=== PATIENT | male | born 1960 | race Caucasian/White ===

== ENCOUNTER 2017-01-31 13:53 | Observation (INO) ==
[2017-01-31] MEDS: 0.9 % Sodium Chloride 1,000 ML IVC SCH ×4 (14:04→16:32)
--- NOTE | 2017-01-31 14:08 | Emergency Department Note ---
Disposition Clinical Impression: Hypotension, Dehydration, Renal failure Disposition: Admitted As Inpatient Condition: Good Referrals: NO,PCP [Primary Care Provider] - Forms: ED Satisfaction Letter Time of Disposition: 16:56 Syncope HPI - General Chief Complaint: ED Dizziness Stated Complaint: dizzy, lightheaded, wont stay awake Time Seen by Provider: 01/31/17 13:55 Source: patient, family (Fiance) Mode of arrival: wheelchair Limitations: no limitations Nursing Notes Reviewed: Yes Vital Signs Reviewed: Yes - History of Present Illness HPI Narrative: 56-year-old white male who presents after having a syncopal episode last night and becoming dizzy and weak this morning. The history primarily obtained from his fiance is at last night around midnight she heard him fall. She went and checked on him and he had passed out. She states she woke up rather quickly. She set up with him for a while and he seemed fine. He went to bed. He was fine this morning. About an hour prior to coming in he started feeling dizzy lightheaded and she said he seemed really sleepy. The patient has a history of hypertension. He states he was on blood pressure medicine. He states he ran out of his blood pressure medicine, and has been taking a blood pressure pill that was given to him by a friend. He has been taking this medicine for 3 days. He does not know the name of the medication. It is in his cabinet at home, and I am sending his fiancee home to get the medication. He denies chest pain. He states it does feel like it is "hard to breathe". He denies abdominal pain. He is had some loose green stool, no blood. No fever. No symptoms. Pt Subjective Complaint: loss of consciousness, felt faint Onset (ago): hour(s) (14 hours ago) Number of episodes: 1 Duration: second(s) Prodromal Symptoms: lightheaded Witnessed: yes - by bystander (Fiancee) Context: standing up Injuries Sustained Associated with Event: none Current Symptoms: weakness, other (Dizziness) History: other (Hypertension) Treatments prior to arrival: none Associated trauma secondary to event: No - Related Data Home Medications Medication Instructions Recorded Confirmed Divalproex Sodium [Depakote] 125 mg PO DAILY 10/30/16 10/30/16 Quetiapine Fumarate [Seroquel] 400 mg PO DAILY 10/30/16 10/30/16 Previous Rx's Medication Instructions Recorded Diclofenac Potassium 50 mg PO TID PRN #20 tablet 10/30/16 Allergies Allergy/AdvReac Type Severity Reaction Status Date / Time No Known Allergies Allergy Verified 01/31/17 13:56 All systems ED: reviewed and negative except as stated. Constitutional: Denies: fever, chills ENT ED: Denies: ear pain, throat pain Cardiovascular: Reports: syncope. Denies: chest pain, palpitations Respiratory: Reports: dyspnea. Denies: cough, wheezes Gastrointestinal: Reports: diarrhea (Loose green stool). Denies: abdominal pain , nausea, vomiting Genitourinary: Denies: urgency, dysuria, frequency Musculoskeletal: Denies: back pain, neck pain Neurological: Reports: weakness. Denies: headache, numbness, paresthesias Past Medical History - Past Medical History Medical history: Reports: other (Mental health) Psychiatric history: Reports: anxiety, depression - Social History Smoking Status: Never smoker Smokeless Tobacco Status: No Alcohol use: Reports: none Drug use: Reports: none Physical Exam - General Limitations: no limitations General appearance: alert, anxious, other (Thin body habitus) - Head Head exam: atraumatic, normocephalic - Eye Eye exam: Present: PERRL, EOMI. Absent: scleral icterus, conjunctival injection - ENT ENT exam: normal oropharynx, mucous membranes moist, TM's normal bilaterally - Neck Neck exam: Present: normal inspection, full ROM, trachea midline. Absent: lymphadenopathy, thyromegaly - Chest Chest inspection: Present: normal inspection, symmetric chest wall rise. Absent : tenderness - Respiratory Respiratory exam: Present: normal lung sounds bilaterally. Absent: respiratory distress, wheezes - Cardiovascular Cardiovascular exam: Present: regular rate, normal rhythm, normal heart sounds - Abdominal Exam Abdominal exam: Present: soft, Non-Tender, normal bowel sounds. Absent: organomegaly, mass - Rectal Exam Rectal exam: Present: normal rectal tone, other (Green liquid stool. No blood.) . Absent: fecal impaction, mass, tenderness - Extremities Exam Extremities exam: Present: normal inspection, full ROM. Absent: tenderness, pedal edema - Neurological Exam Neurological exam: Present: alert, oriented X3, CN II-XII intact. Absent: motor sensory deficit - Psychiatric Psychiatric exam: Present: agitated, anxious - Skin Skin exam: Present: warm, dry, intact, normal color Course - Reevaluation(s) Reevaluation #1: Patient has had 3 L of normal saline. His blood pressures currently 81/47. He has been as high as 100 systolic. His heart rate is 83. Clinically he feels much better. He is awake and alert. With his sister that she had given him 3 of her Ziac tablets. He states that he has taken one 3 days in a row. It is been a long time since he has been on blood pressure medication of his own. Time: 16:40 Reevaluation #2: Discussed with Dr. Woo. He accepts the patient for admission. He will be admitted to a telemetry bed. Time: 16:56 Vital Signs Temperature 98.4 F 01/31/17 13:58 Pulse Rate 104 01/31/17 13:58 Respiratory Rate 16 01/31/17 13:58 Blood Pressure 70/49 01/31/17 13:58 O2 Sat by Pulse Oximetry 94 01/31/17 13:58 Temperature 98.4 F 01/31/17 14:11 Pulse Rate 84 01/31/17 16:17 Respiratory Rate 12 01/31/17 16:17 Blood Pressure 72/38 01/31/17 16:17 O2 Sat by Pulse Oximetry 97 01/31/17 16:17 Oxygen Delivery Oxygen Delivery Room Air Syncope - MDM Narrative Medical decision making narrative: Differential includes but is not limited to medication reaction, medication overdose, anemia, dehydration, myocardial infarction, pulmonary embolus, hypoglycemia, hyperglycemia. The patient has developed some renal sufficiency and dehydration. His BUN/ creatinine are significantly higher than his previous lab values on record. His symptoms coincide with the onset of taking his sister's blood pressure medicine for the last 3 days. Even with his blood pressure up around 80 or 90 he is significantly better. He says he feels much better. He will need to be admitted, monitored, continued hydration. I spoke with Dr. Woo in regards to his admission. He is agreeable with admitting him here. - Medical Records Medical records reviewed: Yes I reviewed the patient's medical records. Previous laboratory values show that his BUN/creatinine of been normal in the past. His BUN is 27 with a creatinine of 2.37. - Lab Data Lab results reviewed: Yes I reviewed the patient's lab results. Result diagrams: 01/31/17 14:25 01/31/17 14:25 Lab Results 01/31/17 01/31/17 01/31/17 Range/Units 14:11 14:16 14:18 WBC (4.3-11.1) K/mcL RBC (4.19-5.50) M/mcL Hgb (12.9-16.9) g/dL Hct (37.5-50.1) % MCV (83.0-100.0) fL MCH (28.0-33.3) pg MCHC (31.6-35.5) g/dL RDW (11.5-14.5) % Plt Count (140-400) K/mcL MPV (9.4-12.4) fL Immature Gran % (0-4) % Seg Neutrophils % % Lymphocytes % % Monocytes % % Eosinophils % % Basophils % % Neutrophils # (1.6-8.9) K/mcL Lymphocytes # (0.6-4.6) K/mcL Monocytes # (0.0-1.3) K/mcL Eosinophils # (0.0-0.6) K/mcL Basophils # (0.0-0.2) K/mcL PT (9.4-12.1) Seconds INR D-Dimer (0-500) ng/mLFEU VBG Lactic Acid (0.5-2.2) mmol/L Sodium (136-145) mEq/L Potassium (3.5-4.5) mEq/L Chloride (98-109) mEq/L Carbon Dioxide (19-29) mEq/L BUN (8-26) mg/dL Creatinine (0.72-1.25) mg/dL Est GFR ( Amer) (> 60) Est GFR (Non-Af Amer) (> 60) BUN/Creatinine Ratio (6-26) Glucose (70-99) mg/dL Calculated Osmolality (280-300) Calcium (8.6-10.8) mg/dL Total Bilirubin (0.2-1.2) mg/dL AST (5-34) Units/L ALT (0-55) Units/L Alkaline Phosphatase (38-126) Units/L Troponin I (0-0.03) ng/mL B-Natriuretic Peptide (0-100) pg/mL Serum Total Protein (6.0-8.3) g/dL Albumin (3.5-5.0) g/dL Globulin (2.4-3.5) g/dL Albumin/Globulin Ratio (1.1-2.2) Urine Color Yellow (Yellow) Urine Clarity Clear (Clear) Urine pH 5.5 (5.0-8.0) pH Units Ur Specific Booker 1.025 (1.010-1.025) Urine Protein Trace (Neg-Trace) mg/dL Urine Glucose (UA) Normal (Normal) mg/dL Urine Ketones Negative (Negative) mg/dL Urine Blood Negative (Negative) Urine Nitrite Negative (Negative) Urine Bilirubin Negative (Negative) Urine Urobilinogen Normal (Normal) mg/dL Ur Leukocyte Esterase Negative (Negative) Ur Culture Indicated? NO (NO) Stool Occult Blood Positive A (Negative) Urine Opiates Screen Negative (Ekjmfk=703) ng/mL Ur Oxycodone Screen Negative (Cutoff= 100) ng/mL Ur Barbiturates Screen Negative (Nscaqv=776) ng/mL Ur Phencyclidine Scrn Negative (Cutoff=25) ng/mL Ur Amphetamines Screen Positive H (Igqbgy=9849) ng/mL U Benzodiazepines Scrn Negative (Rzthua=440) ng/mL Urine Cocaine Screen Negative (Cutoff= 300) ng/mL U Marijuana (THC) Screen Negative (Cutoff = 50) ng/mL 01/31/17 01/31/17 01/31/17 Range/Units 14:25 14:25 14:25 WBC 7.1 (4.3-11.1) K/mcL RBC 4.15 L (4.19-5.50) M/mcL Hgb 12.3 L (12.9-16.9) g/dL Hct 36.6 L (37.5-50.1) % MCV 88.2 (83.0-100.0) fL MCH 29.6 (28.0-33.3) pg MCHC 33.6 (31.6-35.5) g/dL RDW 13.2 (11.5-14.5) % Plt Count 250 (140-400) K/mcL MPV 8.9 L (9.4-12.4) fL Immature Gran % 0.1 (0-4) % Seg Neutrophils % 63.8 % Lymphocytes % 25.6 % Monocytes % 7.4 % Eosinophils % 2.7 % Basophils % 0.4 % Neutrophils # 4.5 (1.6-8.9) K/mcL Lymphocytes # 1.8 (0.6-4.6) K/mcL Monocytes # 0.5 (0.0-1.3) K/mcL Eosinophils # 0.2 (0.0-0.6) K/mcL Basophils # 0.0 (0.0-0.2) K/mcL PT 11.2 (9.4-12.1) Seconds INR 1.0 D-Dimer (0-500) ng/mLFEU VBG Lactic Acid (0.5-2.2) mmol/L Sodium 143 (136-145) mEq/L Potassium 3.7 (3.5-4.5) mEq/L Chloride 104 (98-109) mEq/L Carbon Dioxide 29 (19-29) mEq/L BUN 27 H (8-26) mg/dL Creatinine 2.32 H (0.72-1.25) mg/dL Est GFR ( Amer) 36 L (> 60) Est GFR (Non-Af Amer) 29 L (> 60) BUN/Creatinine Ratio 12 (6-26) Glucose 97 (70-99) mg/dL Calculated Osmolality 301 H (280-300) Calcium 8.3 L (8.6-10.8) mg/dL Total Bilirubin 0.3 (0.2-1.2) mg/dL AST 15 (5-34) Units/L ALT 10 (0-55) Units/L Alkaline Phosphatase 60 (38-126) Units/L Troponin I (0-0.03) ng/mL B-Natriuretic Peptide (0-100) pg/mL Serum Total Protein 6.7 (6.0-8.3) g/dL Albumin 3.4 L (3.5-5.0) g/dL Globulin 3.3 (2.4-3.5) g/dL Albumin/Globulin Ratio 1.0 L (1.1-2.2) Urine Color (Yellow) Urine Clarity (Clear) Urine pH (5.0-8.0) pH Units Ur Specific Booker (1.010-1.025) Urine Protein (Neg-Trace) mg/dL Urine Glucose (UA) (Normal) mg/dL Urine Ketones (Negative) mg/dL Urine Blood (Negative) Urine Nitrite (Negative) Urine Bilirubin (Negative) Urine Urobilinogen (Normal) mg/dL Ur Leukocyte Esterase (Negative) Ur Culture Indicated? (NO) Stool Occult Blood (Negative) Urine Opiates Screen (Gwohzv=926) ng/mL Ur Oxycodone Screen (Cutoff= 100) ng/mL Ur Barbiturates Screen (Sydfbs=670) ng/mL Ur Phencyclidine Scrn (Cutoff=25) ng/mL Ur Amphetamines Screen (Tswlgd=7465) ng/mL U Benzodiazepines Scrn (Pnaofc=469) ng/mL Urine Cocaine Screen (Cutoff= 300) ng/mL U Marijuana (THC) Screen (Cutoff = 50) ng/mL 01/31/17 01/31/17 01/31/17 Range/Units 14:25 14:25 14:25 WBC (4.3-11.1) K/mcL RBC (4.19-5.50) M/mcL Hgb (12.9-16.9) g/dL Hct (37.5-50.1) % MCV (83.0-100.0) fL MCH (28.0-33.3) pg MCHC (31.6-35.5) g/dL RDW (11.5-14.5) % Plt Count (140-400) K/mcL MPV (9.4-12.4) fL Immature Gran % (0-4) % Seg Neutrophils % % Lymphocytes % % Monocytes % % Eosinophils % % Basophils % % Neutrophils # (1.6-8.9) K/mcL Lymphocytes # (0.6-4.6) K/mcL Monocytes # (0.0-1.3) K/mcL Eosinophils # (0.0-0.6) K/mcL Basophils # (0.0-0.2) K/mcL PT (9.4-12.1) Seconds INR D-Dimer (0-500) ng/mLFEU VBG Lactic Acid 1.7 (0.5-2.2) mmol/L Sodium (136-145) mEq/L Potassium (3.5-4.5) mEq/L Chloride (98-109) mEq/L Carbon Dioxide (19-29) mEq/L BUN (8-26) mg/dL Creatinine (0.72-1.25) mg/dL Est GFR ( Amer) (> 60) Est GFR (Non-Af Amer) (> 60) BUN/Creatinine Ratio (6-26) Glucose (70-99) mg/dL Calculated Osmolality (280-300) Calcium (8.6-10.8) mg/dL Total Bilirubin (0.2-1.2) mg/dL AST (5-34) Units/L ALT (0-55) Units/L Alkaline Phosphatase (38-126) Units/L Troponin I 0.00 (0-0.03) ng/mL B-Natriuretic Peptide 12 (0-100) pg/mL Serum Total Protein (6.0-8.3) g/dL Albumin (3.5-5.0) g/dL Globulin (2.4-3.5) g/dL Albumin/Globulin Ratio (1.1-2.2) Urine Color (Yellow) Urine Clarity (Clear) Urine pH (5.0-8.0) pH Units Ur Specific Booker (1.010-1.025) Urine Protein (Neg-Trace) mg/dL Urine Glucose (UA) (Normal) mg/dL Urine Ketones (Negative) mg/dL Urine Blood (Negative) Urine Nitrite (Negative) Urine Bilirubin (Negative) Urine Urobilinogen (Normal) mg/dL Ur Leukocyte Esterase (Negative) Ur Culture Indicated? (NO) Stool Occult Blood (Negative) Urine Opiates Screen (Ihloie=168) ng/mL Ur Oxycodone Screen (Cutoff= 100) ng/mL Ur Barbiturates Screen (Xscreu=773) ng/mL Ur Phencyclidine Scrn (Cutoff=25) ng/mL Ur Amphetamines Screen (Cgtpxv=8009) ng/mL U Benzodiazepines Scrn (Cugitj=369) ng/mL Urine Cocaine Screen (Cutoff= 300) ng/mL U Marijuana (THC) Screen (Cutoff = 50) ng/mL 01/31/17 Range/Units 14:25 WBC (4.3-11.1) K/mcL RBC (4.19-5.50) M/mcL Hgb (12.9-16.9) g/dL Hct (37.5-50.1) % MCV (83.0-100.0) fL MCH (28.0-33.3) pg MCHC (31.6-35.5) g/dL RDW (11.5-14.5) % Plt Count (140-400) K/mcL MPV (9.4-12.4) fL Immature Gran % (0-4) % Seg Neutrophils % % Lymphocytes % % Monocytes % % Eosinophils % % Basophils % % Neutrophils # (1.6-8.9) K/mcL Lymphocytes # (0.6-4.6) K/mcL Monocytes # (0.0-1.3) K/mcL Eosinophils # (0.0-0.6) K/mcL Basophils # (0.0-0.2) K/mcL PT (9.4-12.1) Seconds INR D-Dimer 462 (0-500) ng/mLFEU VBG Lactic Acid (0.5-2.2) mmol/L Sodium (136-145) mEq/L Potassium (3.5-4.5) mEq/L Chloride (98-109) mEq/L Carbon Dioxide (19-29) mEq/L BUN (8-26) mg/dL Creatinine (0.72-1.25) mg/dL Est GFR ( Amer) (> 60) Est GFR (Non-Af Amer) (> 60) BUN/Creatinine Ratio (6-26) Glucose (70-99) mg/dL Calculated Osmolality (280-300) Calcium (8.6-10.8) mg/dL Total Bilirubin (0.2-1.2) mg/dL AST (5-34) Units/L ALT (0-55) Units/L Alkaline Phosphatase (38-126) Units/L Troponin I (0-0.03) ng/mL B-Natriuretic Peptide (0-100) pg/mL Serum Total Protein (6.0-8.3) g/dL Albumin (3.5-5.0) g/dL Globulin (2.4-3.5) g/dL Albumin/Globulin Ratio (1.1-2.2) Urine Color (Yellow) Urine Clarity (Clear) Urine pH (5.0-8.0) pH Units Ur Specific Booker (1.010-1.025) Urine Protein (Neg-Trace) mg/dL Urine Glucose (UA) (Normal) mg/dL Urine Ketones (Negative) mg/dL Urine Blood (Negative) Urine Nitrite (Negative) Urine Bilirubin (Negative) Urine Urobilinogen (Normal) mg/dL Ur Leukocyte Esterase (Negative) Ur Culture Indicated? (NO) Stool Occult Blood (Negative) Urine Opiates Screen (Qfgvvi=112) ng/mL Ur Oxycodone Screen (Cutoff= 100) ng/mL Ur Barbiturates Screen (Fvdnrj=746) ng/mL Ur Phencyclidine Scrn (Cutoff=25) ng/mL Ur Amphetamines Screen (Hlnfla=0858) ng/mL U Benzodiazepines Scrn (Rrrhoh=087) ng/mL Urine Cocaine Screen (Cutoff= 300) ng/mL U Marijuana (THC) Screen (Cutoff = 50) ng/mL - Radiology Data Radiology results reviewed: Yes I reviewed the patient's radiology results. ITS Impressions Chest X-Ray 01/31/17 14:04 IMPRESSION: 1. No acute abnormality. D/ / Huseyin Zavala MD / Huseyin Zavala MD Interpreting Provider: Huseyin Zavala MD - EKG Data EKG attestation: Yes I reviewed and interpreted this EKG. EKG results narrative: Ectopic atrial tachycardia with a rate of 105, right ventricular hypertrophy, nonspecific ST-T changes. Rhythm strip shows an ectopic atrial tachycardia with a GA interval of 113 ms, QRS 79 ms with no other ectopy as interpreted by me. There are no old EKGs available for comparison.
[2017-01-31 14:27] LABS: Bilirubin,Urine Negative (Negative); Blood,Urine Negative (Negative); Clarity,Urine Clear (Clear); Color,Urine Yellow (Yellow); Glucose,Urine (UA) Normal (Normal); Ketones,Urine Negative (Negative); Leukocyte Esterase,Urine Negative (Negative); Nitrite,Urine Negative (Negative); PH,Urine 5.5 pH Units (5.0-8.0); Protein,Urine Trace mg/dL (Neg-Trace); Specific Gravity,Urine 1.025 (1.010-1.025); Urobilinogen,Urine Normal (Normal)
[2017-01-31 14:34] LABS: Amphetamine Screen,Urine Positive ng/mL (Cutoff=1000); Barbiturate Screen,Urine Negative ng/mL (Cutoff=200); Benzodiazepines Screen,Urine Negative ng/mL (Cutoff=200); Cannabinoid Screen,Urine Negative ng/mL (Cutoff = 50); Cocaine Screen,Urine Negative ng/mL (Cutoff= 300); Opiate Screen,Urine Negative ng/mL (Cutoff=300); Phencyclidine Screen,Urine Negative ng/mL (Cutoff=25)
[2017-01-31 14:35] LABS: Basophils % 0.4 %; Eosinophils # 0.2 K/mcL (0.0-0.6); Eosinophils % 2.7 %; Hematocrit 36.6 % (37.5-50.1); Hemoglobin 12.3 g/dL (12.9-16.9); Immature Granulocytes % 0.1 % (0-4); Lymphocytes # 1.8 K/mcL (0.6-4.6); Lymphocytes % 25.6 %; Mean Corpuscular HGB Conc 33.6 g/dL (31.6-35.5); Mean Corpuscular Hemoglobin 29.6 pg (28.0-33.3); Mean Corpuscular Volume 88.2 fL (83.0-100.0); Mean Platelet Volume 8.9 fL (9.4-12.4); Monocytes # 0.5 K/mcL (0.0-1.3); Monocytes % 7.4 %; Neutrophils # 4.5 K/mcL (1.6-8.9); Platelet Count 250 K/mcL (140-400); Red Blood Count 4.15 M/mcL (4.19-5.50); Red Cell Distribution Width 13.2 % (11.5-14.5); Segmented Neutrophils % 63.8 %
[2017-01-31 14:39] LABS: Prothrombin Time 11.2 Seconds (9.4-12.1)
[2017-01-31 14:52] LABS: Albumin 3.4 g/dL (3.5-5.0); Bilirubin,Total 0.3 mg/dL (0.2-1.2); Calcium 8.3 mg/dL (8.6-10.8); Globulin 3.3 g/dL (2.4-3.5); Potassium 3.7 mEq/L (3.5-4.5); Total Protein 6.7 g/dL (6.0-8.3)
[2017-01-31] MEDS ORDERED: 0.9 % Sodium Chloride 1,000 ML IVC ONE (16:27)
[2017-01-31] MEDS ORDERED: Naloxone 0.4 MG/ML INJ IVP PRN (18:09)
[2017-01-31] MEDS ORDERED: 0.9 % Sodium Chloride 1,000 ML IVC SCH ×2 (18:09)
[2017-01-31] MEDS ORDERED: Ondansetron 4 MG/2 ML VIAL IVP PRN (21:06)
[2017-02-01] MEDS ORDERED: *HR* Enoxaparin 30 MG/0.3 ML SYRINGE SQ SCH (06:00)
[2017-02-01 06:20] LABS: BUN/Creatinine Ratio 20 (6-26); Blood Urea Nitrogen 22 mg/dL (8-26); Calcium 7.6 mg/dL (8.6-10.8); Carbon Dioxide 24 mEq/L (19-29); Chloride 111 mEq/L (98-109); Glucose 80 mg/dL (70-99); Osmolality,Calculated 300 (280-300); Potassium 3.9 mEq/L (3.5-4.5); Sodium 144 mEq/L (136-145); eGFR For African Americans > 60 (> 60); eGFR For Non-African Americans > 60 (> 60)
--- NOTE | 2017-02-01 11:18 | Internal Med History&Physical ---
Date of Encounter: 02/01/17 Time of Encounter: 10:30 Assessment and Plan (1) Syncope Current visit: Yes Status: Acute Suspect due to orthostatic hypotension. He has been ordered IV fluids. Orthostatic vital signs will be checked prior to discharge. Qualifiers: Syncope type: unspecified Qualified Code(s): R55 - Syncope and collapse (2) Weight loss Current visit: Yes Status: Acute Will order chest, abdomen, and pelvic CT to evaluate reported 80 pound weight loss. (3) Tobacco abuse Current visit: Yes Status: Acute We will check room air oximetry before discharge. We will order nicotine patch to lessen withdrawal symptoms. (4) Chest pain on exertion Current visit: Yes Status: Acute Possibly angina related to underlying CAD. Will give Nitrostat prescription at time of discharge. (5) Hypotension Current visit: Yes Status: Acute IV fluids have been given and blood pressure has normalized. Qualifiers: Hypotension type: unspecified hypotension type Qualified Code(s): I95.9 - Hypotension, unspecified (6) Renal failure Current visit: Yes Status: Acute Improved today. Suspect acute renal insufficiency due to medication used at home. Continue to monitor renal indices. Internal Medicine - H&P: HPI Chief complaint: Syncope Admitted From: Home Plans for Post Hospital Care: Home History of present illness: Mr. Ng is a 56 year old male who came to emergency room after having a syncopal episode at home. He states he had been intermittently taking blood pressure medication given him by a friend over the past year since he has not returned to his PCP to receive a prescription for medication. He does not check his blood pressure at home but simply takes a blood pressure pill when he feels blood pressure is elevated. He took the medication at home for 3 consecutive days and noticed he was feeling lightheaded. He was evaluated in emergency room and found to have anemia and acute renal insufficiency. He was admitted to [facility] for ongoing care needs. His cardiovascular history is negative for known [place] heart failure DVT or pulmonary embolus. He does get chest pain on exertion and states the discomfort is predictable and seems to be increasing in severity and coming on quicker with exertion over the past 2 years. He has not sought medical attention for this and states he has not been seen by PCP in over 1-1/2 years. Past Med Surg Social Fam HX - Past Medical History Medical history: asthma, GERD, syncope, other Psychiatric history: anxiety, depression - Past Surgical History Surgical History: other - Social History Smoking Status: Current every day smoker Packs per day: 2-3 Smokeless Tobacco Status: No Alcohol use: none Drug use: none Internal Medicine - H&P: Meds Diclofenac Potassium 50 mg PO TID PRN #20 tablet 10/30/16 [Rx] Divalproex Sodium [Depakote] 125 mg PO DAILY 10/30/16 [History] Quetiapine Fumarate [Seroquel] 400 mg PO DAILY 10/30/16 [History] Allergies No Known Allergies Allergy (Verified 01/31/17 13:56) All Systems PM: A 10-system review of systems was performed and is negative for pertinent findings except as documented above in the HPI. Review of systems: Gen.: He states his weight has decreased approximately 80 pounds in the past 5 years and 25 pounds in the last year, unintentionally Cardiovascular: As per history of present illness Respiratory: He has smoked since age 12 up to 3 packs per day. He has not had PFTs and does not wear home oxygen GI: He denies disorders of his liver gallbladder or exocrine pancreas : He denies hematuria dysuria or kidney stones Neurologic: He denies large distribution strokes or seizures Endocrine: He denies diabetes thyroid disease or hyperlipidemia. His TSH was slightly suppressed at 0.348 on 02/28/2016. Hematology/oncology: He denies blood disorders cancers or anemia Psychiatric: He has anxiety and follows at mental health clinic. He denies depression or other mental health diagnoses Musk skeletal: He has DJD. He reports he has had 3 back surgeries for generative disc disease but denies other bone joint or muscle disorders. - Constitutional Vitals: Temp Pulse Resp BP Pulse Ox 98.4 F 86 18 124/72 98 02/01/17 07:56 02/01/17 07:56 02/01/17 07:56 02/01/17 07:56 02/01/17 07:56 Exam: Gen.: He is a well-developed well-nourished male who appears slightly anxious HEENT: Head is atraumatic and normocephalic. Eyes: EOMI. There is no scleral icterus. Mouth: Mucosa is moist. Neck: Supple and nontender. There is no thyromegaly or adenopathy noted. Heart: Regular without murmurs gallops or ectopics Lungs: No wheezes or crackles are heard Abdomen: Soft and nontender with no masses or guarding noted Extremities: There is no cyanosis edema or clubbing noted. Dorsalis pedis and posterior tibial pulses are 1-2 over 2 bilaterally. Neurologic: Mental status: He is talkative and a good historian. Cranial nerves : Smile is symmetric. Forehead wrinkles bilaterally. Tongue protrudes midline. EOMI. Motor: There is no pronator drift. Cerebellar: Finger to nose is intact bilaterally. Skin: Warm and dry Internal Med - H&P Results - Labs CBC & Chem 7: 01/31/17 14:25 02/01/17 04:20 Labs: BMP 02/01/17 04:20 Sodium 144 Potassium 3.9 Chloride 111 H Carbon Dioxide 24 BUN 22 Creatinine 1.11 D Glucose 80 Calcium 7.6 L
[2017-02-01] MEDS ORDERED: Albuterol 2.5 MG/3 ML NEBULIZER ONE (11:28)
[2017-02-01] MEDS ORDERED: Nicotine 21 MG PATCH.TD24 TD SCH (11:30)
[2017-02-01 13:45] LABS: Thyroid Stimulating Hormone 0.558 mcIU/mL (0.350-4.840)
--- NOTE | 2017-02-01 13:47 | Electrocardiograph Report ---
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
[2017-02-01] MEDS ORDERED: Albuterol 2.5 MG/3 ML NEBULIZER IH PRN (14:13)
[2017-02-01] MEDS: Mag Hydrox/Al Hydrox/Simeth 30 ML UDC PO PRN ×2 (15:59→20:43)
[2017-02-01] MEDS: ALPRAZolam 0.25 MG TABLET PO PRN ×2 (16:23→22:18)
[2017-02-01] MEDS: 0.9 % Sodium Chloride 1,000 ML IV SCH (19:02)
[2017-02-01 19:10] LABS: Folate 14.1 ng/mL (7.0-31.4)
[2017-02-02] MEDS: 0.9 % Sodium Chloride 1,000 ML IV SCH (05:06)
[2017-02-02] MEDS: ALPRAZolam 0.25 MG TABLET PO PRN (05:16)
[2017-02-02] MEDS ORDERED: *HR* Enoxaparin 40 MG/0.4 ML SYRINGE SQ SCH (06:00)
[2017-02-02 06:10] LABS: Basophils % 0.5 %; Eosinophils # 0.2 K/mcL (0.0-0.6); Eosinophils % 2.9 %; Hematocrit 43.8 % (37.5-50.1); Hemoglobin 14.1 g/dL (12.9-16.9); Immature Granulocytes % 0.4 % (0-4); Lymphocytes % 26.5 %; Mean Corpuscular HGB Conc 32.2 g/dL (31.6-35.5); Mean Corpuscular Hemoglobin 29.1 pg (28.0-33.3); Mean Corpuscular Volume 90.5 fL (83.0-100.0); Mean Platelet Volume 9.6 fL (9.4-12.4); Monocytes # 0.5 K/mcL (0.0-1.3); Neutrophils # 4.9 K/mcL (1.6-8.9); Platelet Count 245 K/mcL (140-400); Red Blood Count 4.84 M/mcL (4.19-5.50); Red Cell Distribution Width 12.7 % (11.5-14.5); Segmented Neutrophils % 63.7 %
[2017-02-02 06:24] LABS: BUN/Creatinine Ratio 21 (6-26); Blood Urea Nitrogen 17 mg/dL (8-26); Calcium 8.5 mg/dL (8.6-10.8); Carbon Dioxide 19 mEq/L (19-29); Chloride 110 mEq/L (98-109); Glucose 77 mg/dL (70-99); Osmolality,Calculated 290 (280-300); Sodium 140 mEq/L (136-145); eGFR For African Americans > 60 (> 60); eGFR For Non-African Americans > 60 (> 60)
[2017-02-02 07:31] VITALS: BP 127/78
--- NOTE | 2017-02-02 09:56 | Discharge Summary ---
Date of Encounter: 02/02/17 Time of Encounter: 09:40 - Discharge Diagnosis (1) Syncope Priority: Primary Status: Acute Qualifiers: Syncope type: unspecified Qualified Code(s): R55 - Syncope and collapse (2) Lung nodules Priority: Secondary Status: Acute (3) Weight loss Priority: Secondary Status: Acute (4) Tobacco abuse Priority: Secondary Status: Chronic (5) Chest pain on exertion Priority: Secondary Status: Acute (6) Hypotension Priority: Secondary Status: Resolved Qualifiers: Hypotension type: unspecified hypotension type Qualified Code(s): I95.9 - Hypotension, unspecified (7) Renal failure Priority: Secondary Status: Resolved - Discharge Medications Prescriptions: Nitroglycerin [Nitrostat] 0.4 mg SL Q5M PRN #1 vial PRN Reason: Chest Pain Home Medications: Divalproex Sodium [Depakote] 125 mg PO DAILY 10/30/16 [History] Quetiapine Fumarate [Seroquel] 400 mg PO DAILY 10/30/16 [History] Nitroglycerin [Nitrostat] 0.4 mg SL Q5M PRN #1 vial 02/02/17 [Rx] Allergies/Adverse Reactions: Allergies No Known Allergies Allergy (Verified 01/31/17 13:56) Procedures/tests Complete & Pending: Procedures Performed prior 72 hours Category Date Time Status CT abd pelvis wo no iv no oral [CT] Routine Cat Scan 02/01/17 11:[address] chest wo con [CT] Routine Cat Scan 02/01/17 11:08 Completed Date of admission: 01/31/17 17:48 Primary care physician: Herrera Holloway CNP Consults: 01/31/17 18:21 Consult to Nutrition [CONS] Routine Comment: Consulting Provider: NUTRITION Reason for Dietary Consult: MST Score - Patient Status Disposition: Home, Self-Care Condition: Good Overall status at discharge: patient is progressing back to baseline - Discharge Instructions Follow Up With: Herrera Holloway CNP [Advanced Practice Nurse] - 1 week - Diet and Activity Activity: resume usual activities as tolerated Diet: advance to your usual diet Hospital course: Mr. Ng is a 56 year old male who came to emergency room after having a syncopal episode at home. He states he had been intermittently taking blood pressure medication given him by a friend over the past year since he has not returned to his PCP to receive a prescription for medication. He does not check his blood pressure at home but simply takes a blood pressure pill when he feels blood pressure is elevated. He took the medication at home for 3 consecutive days and noticed he was feeling lightheaded. He was evaluated in emergency room and found to have anemia and acute renal insufficiency. He was admitted to [facility] for ongoing care needs. Initial orders were written by the emergency room physician. I saw him on February 01 and performed the history and physical. He was given IV fluids. His blood pressure and azotemia resolved with the BUN and creatinine being 17 and 0.82 respectively with estimated GFR greater than 60 on day of discharge. A chest, abdomen, and pelvic CT was done to further evaluate his reported 80 pound weight loss. There were multiple scattered nonspecific pulmonary nodules throughout both lungs new since the 06/25/2015 exam. The largest one measured 2 x 1.3 cm in the posterior left upper lobe. Differential diagnoses included benign granulomatous process but also intrapulmonary malignancy. A PET/CT scan was recommended for further evaluation. I will let his PCP order this study. February 02 he felt improved and stable for discharge home. He will follow at [facility] with his PCP Herrera Holloway CNP within 1 week. I prescribed Nitrostat to use prn for chest pain. Further cardiac workup can be coordinated by his PCP. I told him to not use any more antihypertensive medication at home. I encouraged him to become a nonsmoker. A room air oximetry 6 minute walk will be done prior to discharge to see if he qualifies for home oxygen. - Time Spent with Patient Total time spent providing and/or coordinating discharge services: - Constitutional Vitals: Temp Pulse Resp BP Pulse Ox 98.5 F 86 16 127/78 96 02/02/17 07:25 02/02/17 07:25 02/02/17 07:25 02/02/17 07:25 02/02/17 07:25
== END 2017-02-02 10:40 | disposition home or self-care (01) ==
LOC: EMEROOPIK 13:53 → INPPIK 13:53
PROVIDERS: ADMIT Internal Medicine; ATTEND Internal Medicine

== ENCOUNTER 2017-04-09 09:56 | Observation (INO) ==
[2017-04-09] MEDS ORDERED: 0.9 % Sodium Chloride 1,000 ML IVC ONE (10:14)
[2017-04-09] MEDS ORDERED: Ondansetron 4 MG/2 ML VIAL IVP ONE ×3 (10:14→17:59)
--- NOTE | 2017-04-09 10:18 | Emergency Department Note ---
Disposition Clinical Impression: Abdominal pain Qualifiers: Abdominal location: epigastric Qualified Code(s): R10.13 - Epigastric pain Intractable vomiting Qualifiers: Vomiting type: unspecified Nausea presence: with nausea Qualified Code(s): R11.2 - Nausea with vomiting, unspecified Disposition: Admitted As Inpatient Condition: Good Time of Disposition: 16:10 Nausea/Vomiting/Diarrhea HPI - General Chief complaint: ED Nausea/Vomiting/Diarrhea Stated complaint: Intermitent nausea vomiting for two days. Time Seen by Provider: 04/09/17 10:05 Source: patient Mode of arrival: ambulatory Limitations: no limitations Nursing Notes Reviewed: Yes Vital Signs Reviewed: Yes - History of Present Illness HPI Narrative: 56-year-old white male with onset of vomiting that started yesterday evening around 6 PM. He vomited twice yesterday. He had some epigastric discomfort. Vomiting subsided but he continued to have discomfort. He states just prior to coming in and he began vomiting again and vomited multiple times. No hematemesis. He continues to have epigastric pain which is sharp and burning. He has some pressure discomfort in his chest. No fever. He has back pain between his shoulder blades. The back pain started yesterday evening. No difficulty urinating or pain when he urinates. No recent fever or cough. Pt Subjective Complaint: nausea, vomiting Onset (ago): day(s) Description of emesis: food contents (2) Number of episodes of emesis: 2 (To yesterday, multiple times today.) Associated Abdominal Pain: Yes If pain, Location of pain: epigastric Severity: moderate Quality: sharp Consistency: constant Worsens with: nonthing Associated symptoms: Reports: other (Back pain) - Related Data Home Medications Medication Instructions Recorded Confirmed Divalproex Sodium [Depakote] 125 mg PO DAILY 10/30/16 10/30/16 Quetiapine Fumarate [Seroquel] 400 mg PO DAILY 10/30/16 10/30/16 Previous Rx's Medication Instructions Recorded Nitroglycerin [Nitrostat] 0.4 mg SL Q5M PRN #1 vial 02/02/17 Allergies Allergy/AdvReac Type Severity Reaction Status Date / Time No Known Allergies Allergy Verified 01/31/17 13:56 All systems ED: reviewed and negative except as stated. Constitutional: Denies: fever, chills ENT ED: Denies: ear pain, throat pain Cardiovascular: Reports: chest pain (Pressure) Respiratory: Denies: cough, dyspnea Gastrointestinal: Reports: abdominal pain, nausea, vomiting. Denies: diarrhea, hematemesis, melena Genitourinary: Denies: urgency, dysuria, frequency Musculoskeletal: Reports: back pain (Between his shoulder blades) Past Medical History - Past Medical History Medical history: Reports: asthma, GERD, syncope, other Surgical history: Reports: other Psychiatric history: Reports: anxiety, depression - Social History Smoking Status: Current every day smoker Smokeless Tobacco Status: No Alcohol use: Reports: none Drug use: Reports: none Physical Exam - General Limitations: no limitations General appearance: alert, in no apparent distress - Head Head exam: atraumatic, normocephalic - Eye Eye exam: Present: PERRL, EOMI. Absent: scleral icterus, conjunctival injection - ENT ENT exam: normal oropharynx, mucous membranes moist - Neck Neck exam: Present: normal inspection, full ROM, trachea midline. Absent: tenderness, lymphadenopathy - Chest Chest inspection: Present: normal inspection, symmetric chest wall rise - Respiratory Respiratory exam: Present: normal lung sounds bilaterally. Absent: respiratory distress, wheezes - Cardiovascular Cardiovascular exam: Present: normal rhythm, tachycardia. Absent: systolic murmur, diastolic murmur, gallop - Abdominal Exam Abdominal exam: Present: soft, tenderness, hyperactive bowel sounds. Absent: distention, guarding, rebound, organomegaly, mass Abdominal tenderness: Present: epigastrium, mild - Extremities Exam Extremities exam: Present: normal inspection, full ROM, normal capillary refill. Absent: pedal edema - Back Exam Back exam: Absent: CVA tenderness (R), CVA tenderness (L) - Neurological Exam Neurological exam: Present: alert, oriented X3, normal gait - Psychiatric Psychiatric exam: Present: agitated, anxious - Skin Skin exam: Present: warm, dry, intact. Absent: cyanosis, diaphoresis Course - Reevaluation(s) Reevaluation #1: Continues to vomit despite 4 mg of Zofran and a total of 25 mg of Phenergan IV. I am going to give him 5 mg of IV Haldol and 25 mg of Benadryl IV. Time: 12:13 Reevaluation #2: Patient had been resting for a while but is now actively vomiting again. Zofran and morphine are ordered. I will work on finding a bed for hospitalization further workup. Time: 15:54 Vital Signs Pulse Rate 122 04/09/17 09:58 Respiratory Rate 18 04/09/17 09:58 Blood Pressure 131/92 04/09/17 09:58 O2 Sat by Pulse Oximetry 99 04/09/17 09:58 Temperature 99.3 F 04/09/17 15:40 Pulse Rate 83 04/09/17 16:00 Respiratory Rate 12 04/09/17 16:00 Blood Pressure 132/88 04/09/17 16:00 O2 Sat by Pulse Oximetry 98 04/09/17 16:00 Oxygen Delivery Oxygen Delivery Room Air Nausea/Vomiting/Diarrhea - MDM Narrative Medical decision making narrative: Differential includes but is not limited to gastritis, gastroenteritis, peptic ulcer disease, pancreatitis, hepatitis, biliary colic, cholecystitis, myocardial infarction, GERD. The patient has intractable epigastric pain and intractable vomiting. He will require observation and further treatment. I discussed this with the patient and his family, they are agreeable. I discussed case with Dr. Woo. He is agreeable to an observation admission for further evaluation treatment. - Lab Data Lab results reviewed: Yes I reviewed the patient's lab results. Result diagrams: 04/09/17 10:25 04/09/17 10:25 Lab Results 04/09/17 04/09/17 04/09/17 Range/Units 10:25 10:25 10:25 WBC 11.3 H (4.3-11.1) K/mcL RBC 4.81 (4.19-5.50) M/mcL Hgb 14.1 (12.9-16.9) g/dL Hct 40.3 (37.5-50.1) % MCV 83.8 (83.0-100.0) fL MCH 29.3 (28.0-33.3) pg MCHC 35.0 (31.6-35.5) g/dL RDW 13.7 (11.5-14.5) % Plt Count 240 (140-400) K/mcL MPV 9.7 (9.4-12.4) fL Immature Gran % 0.4 (0-4) % Seg Neutrophils % 80.8 % Lymphocytes % 12.5 % Monocytes % 5.7 % Eosinophils % 0.4 % Basophils % 0.2 % Neutrophils # 9.1 H (1.6-8.9) K/mcL Lymphocytes # 1.4 (0.6-4.6) K/mcL Monocytes # 0.6 (0.0-1.3) K/mcL Eosinophils # 0.1 (0.0-0.6) K/mcL Basophils # 0.0 (0.0-0.2) K/mcL Sodium 137 (136-145) mEq/L Potassium 4.0 (3.5-4.5) mEq/L Chloride 96 L (98-109) mEq/L Carbon Dioxide 27 (19-29) mEq/L BUN 14 (8-26) mg/dL Creatinine 0.87 (0.72-1.25) mg/dL Est GFR ( Amer) > 60 (> 60) Est GFR (Non-Af Amer) > 60 (> 60) BUN/Creatinine Ratio 16 (6-26) Glucose 108 H (70-99) mg/dL Calculated Osmolality 285 (280-300) Calcium 9.7 (8.6-10.8) mg/dL Total Bilirubin 0.5 (0.2-1.2) mg/dL AST 15 (5-34) Units/L ALT 24 (0-55) Units/L Alkaline Phosphatase 78 (38-126) Units/L Troponin I 0.00 (0-0.03) ng/mL Serum Total Protein 7.5 (6.0-8.3) g/dL Albumin 3.7 (3.5-5.0) g/dL Globulin 3.8 H (2.4-3.5) g/dL Albumin/Globulin Ratio 1.0 L (1.1-2.2) Lipase 28 (8-78) Units/L Urine Color (Yellow) Urine Clarity (Clear) Urine pH (5.0-8.0) pH Units Ur Specific Unity (1.010-1.025) Urine Protein (Neg-Trace) mg/dL Urine Glucose (UA) (Normal) mg/dL Urine Ketones (Negative) mg/dL Urine Blood (Negative) Urine Nitrite (Negative) Urine Bilirubin (Negative) Urine Urobilinogen (Normal) mg/dL Ur Leukocyte Esterase (Negative) Urine Microscopic RBC (0-3) per hpf Urine Microscopic WBC (0-3) per hpf Ur Squamous Epith Cells (None-Few) per lpf Urine Bacteria (None-Few) per hpf Ur Culture Indicated? (NO) Urine Opiates Screen (Xbotvy=795) ng/mL Ur Oxycodone Screen (Cutoff= 100) ng/mL Ur Barbiturates Screen (Mvcsux=524) ng/mL Ur Phencyclidine Scrn (Cutoff=25) ng/mL Ur Amphetamines Screen (Ehxnuy=7463) ng/mL U Benzodiazepines Scrn (Nckqjj=758) ng/mL Urine Cocaine Screen (Cutoff= 300) ng/mL U Marijuana (THC) Screen (Cutoff = 50) ng/mL 04/09/17 04/09/17 Range/Units 13:06 13:06 WBC (4.3-11.1) K/mcL RBC (4.19-5.50) M/mcL Hgb (12.9-16.9) g/dL Hct (37.5-50.1) % MCV (83.0-100.0) fL MCH (28.0-33.3) pg MCHC (31.6-35.5) g/dL RDW (11.5-14.5) % Plt Count (140-400) K/mcL MPV (9.4-12.4) fL Immature Gran % (0-4) % Seg Neutrophils % % Lymphocytes % % Monocytes % % Eosinophils % % Basophils % % Neutrophils # (1.6-8.9) K/mcL Lymphocytes # (0.6-4.6) K/mcL Monocytes # (0.0-1.3) K/mcL Eosinophils # (0.0-0.6) K/mcL Basophils # (0.0-0.2) K/mcL Sodium (136-145) mEq/L Potassium (3.5-4.5) mEq/L Chloride (98-109) mEq/L Carbon Dioxide (19-29) mEq/L BUN (8-26) mg/dL Creatinine (0.72-1.25) mg/dL Est GFR ( Amer) (> 60) Est GFR (Non-Af Amer) (> 60) BUN/Creatinine Ratio (6-26) Glucose (70-99) mg/dL Calculated Osmolality (280-300) Calcium (8.6-10.8) mg/dL Total Bilirubin (0.2-1.2) mg/dL AST (5-34) Units/L ALT (0-55) Units/L Alkaline Phosphatase (38-126) Units/L Troponin I (0-0.03) ng/mL Serum Total Protein (6.0-8.3) g/dL Albumin (3.5-5.0) g/dL Globulin (2.4-3.5) g/dL Albumin/Globulin Ratio (1.1-2.2) Lipase (8-78) Units/L Urine Color Yellow (Yellow) Urine Clarity Clear (Clear) Urine pH >=9.0 H (5.0-8.0) pH Units Ur Specific Unity 1.015 (1.010-1.025) Urine Protein 100 H (Neg-Trace) mg/dL Urine Glucose (UA) Normal (Normal) mg/dL Urine Ketones 40 H (Negative) mg/dL Urine Blood Negative (Negative) Urine Nitrite Negative (Negative) Urine Bilirubin Negative (Negative) Urine Urobilinogen Normal (Normal) mg/dL Ur Leukocyte Esterase Negative (Negative) Urine Microscopic RBC 0-3 (0-3) per hpf Urine Microscopic WBC 0-3 (0-3) per hpf Ur Squamous Epith Cells Few (None-Few) per lpf Urine Bacteria Few (None-Few) per hpf Ur Culture Indicated? NO (NO) Urine Opiates Screen Positive H (Tdssse=213) ng/mL Ur Oxycodone Screen Negative (Cutoff= 100) ng/mL Ur Barbiturates Screen Negative (Dqckdh=912) ng/mL Ur Phencyclidine Scrn Negative (Cutoff=25) ng/mL Ur Amphetamines Screen Positive H (Psecms=9019) ng/mL U Benzodiazepines Scrn Negative (Lepyth=505) ng/mL Urine Cocaine Screen Negative (Cutoff= 300) ng/mL U Marijuana (THC) Screen Negative (Cutoff = 50) ng/mL - Radiology Data Radiology results reviewed: Yes I reviewed the patient's radiology results. Impressions Abdomen/Pelvis CT 04/09/17 10:14 IMPRESSION: 1. No acute abnormality noted. D/ / Carlos Ford MD / Carlos Ford MD Interpreting Provider: Carlos Ford MD Chest X-Ray 04/09/17 10:14 IMPRESSION: Normal chest x-ray D/ / Charles Figueroa MD / Charles Figueroa MD Interpreting Provider: Charles Figueroa MD - EKG Data EKG attestation: Yes I reviewed and interpreted this EKG. EKG results narrative: Sinus tachycardia, rate of 105, left atrial enlargement, nonspecific ST-T changes. Rhythm strip shows sinus tachycardia with a rate of 105, SC interval 141 ms, QRS is 79 ms with no other ectopy as interpreted by me.
[2017-04-09] MEDS: *HR* Morphine 2 MG/ML SYRINGE IVP ONE ×2 (10:30→11:55)
[2017-04-09 10:31] LABS: Basophils % 0.2 %; Eosinophils % 0.4 %; Hematocrit 40.3 % (37.5-50.1); Hemoglobin 14.1 g/dL (12.9-16.9); Immature Granulocytes % 0.4 % (0-4); Lymphocytes # 1.4 K/mcL (0.6-4.6); Lymphocytes % 12.5 %; Mean Corpuscular Hemoglobin 29.3 pg (28.0-33.3); Mean Corpuscular Volume 83.8 fL (83.0-100.0); Mean Platelet Volume 9.7 fL (9.4-12.4); Monocytes # 0.6 K/mcL (0.0-1.3); Monocytes % 5.7 %; Neutrophils # 9.1 K/mcL (1.6-8.9); Platelet Count 240 K/mcL (140-400); Red Blood Count 4.81 M/mcL (4.19-5.50); Red Cell Distribution Width 13.7 % (11.5-14.5); Segmented Neutrophils % 80.8 %
[2017-04-09 10:33] LABS: Eosinophils # 0.1 K/mcL (0.0-0.6)
[2017-04-09 10:47] LABS: Alanine Aminotransferase 24 Units/L (0-55); Albumin 3.7 g/dL (3.5-5.0); Alkaline Phosphatase 78 Units/L (38-126); Aspartate Amino Transferase 15 Units/L (5-34); BUN/Creatinine Ratio 16 (6-26); Bilirubin,Total 0.5 mg/dL (0.2-1.2); Blood Urea Nitrogen 14 mg/dL (8-26); Calcium 9.7 mg/dL (8.6-10.8); Carbon Dioxide 27 mEq/L (19-29); Chloride 96 mEq/L (98-109); Globulin 3.8 g/dL (2.4-3.5); Glucose 108 mg/dL (70-99); Lipase 28 Units/L (8-78); Osmolality,Calculated 285 (280-300); Sodium 137 mEq/L (136-145); Total Protein 7.5 g/dL (6.0-8.3); eGFR For African Americans > 60 (> 60); eGFR For Non-African Americans > 60 (> 60)
[2017-04-09] MEDS: *HR* Promethazine 25 MG/ML VIAL IVP ONE ×2 (11:18→12:01)
[2017-04-09] MEDS: 0.9 % Sodium Chloride 1,000 ML IVC SCH ×3 (11:35→19:09)
[2017-04-09] MEDS ORDERED: *HR* Promethazine 25 MG/ML VIAL IVP ONE (11:49)
[2017-04-09] MEDS ORDERED: Haloperidol Lactate 5 MG/ML VIAL IVP ONE (12:12)
[2017-04-09] MEDS ORDERED: *HR* Morphine 2 MG/ML SYRINGE IVP ONE ×5 (12:29→17:59)
[2017-04-09 13:17] LABS: Bilirubin,Urine Negative (Negative); Blood,Urine Negative (Negative); Clarity,Urine Clear (Clear); Color,Urine Yellow (Yellow); Glucose,Urine (UA) Normal (Normal); Ketones,Urine 40 mg/dL (Negative); Leukocyte Esterase,Urine Negative (Negative); Nitrite,Urine Negative (Negative); PH,Urine >=9.0 pH Units (5.0-8.0); Protein,Urine 100 mg/dL (Neg-Trace); Specific Gravity,Urine 1.015 (1.010-1.025); Urobilinogen,Urine Normal (Normal)
[2017-04-09 13:32] LABS: Bacteria,Urine Few per hpf (None-Few); RBC,Urine 0-3 per hpf (0-3); Squamous Epithelial Cell,Urine Few per lpf (None-Few); WBC,Urine 0-3 per hpf (0-3)
[2017-04-09 13:33] LABS: Amphetamine Screen,Urine Positive ng/mL (Cutoff=1000); Barbiturate Screen,Urine Negative ng/mL (Cutoff=200); Benzodiazepines Screen,Urine Negative ng/mL (Cutoff=200); Cannabinoid Screen,Urine Negative ng/mL (Cutoff = 50); Cocaine Screen,Urine Negative ng/mL (Cutoff= 300); Opiate Screen,Urine Positive ng/mL (Cutoff=300); Phencyclidine Screen,Urine Negative ng/mL (Cutoff=25)
[2017-04-09] MEDS ORDERED: Famotidine 20 MG/2 ML VIAL IVP ONE (14:53)
[2017-04-09] MEDS ORDERED: GI Cocktail 40 ML EACH PO ONE (15:59)
--- NOTE | 2017-04-09 16:30 | Electrocardiograph Report ---
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
[2017-04-09] MEDS ORDERED: Naloxone 0.4 MG/ML INJ IVP PRN (17:59)
[2017-04-09] MEDS ORDERED: *HR* Promethazine 25 MG/ML VIAL IVP PRN (17:59)
[2017-04-09] MEDS ORDERED: 0.9 % Sodium Chloride 1,000 ML IVC SCH (17:59)
[2017-04-09] MEDS ORDERED: *HR* Morphine 2 MG/ML SYRINGE IVP PRN (17:59)
[2017-04-09] MEDS ORDERED: Ondansetron 4 MG/2 ML VIAL IVP PRN (17:59)
[2017-04-09] MEDS: Famotidine 20 MG/2 ML VIAL IVP SCH (19:06)
[2017-04-10] MEDS: 0.9 % Sodium Chloride 1,000 ML IVC SCH ×2 (02:01→12:39)
[2017-04-10] MEDS: Famotidine 20 MG/2 ML VIAL IVP SCH ×2 (03:43→17:01)
[2017-04-10] MEDS: *HR* Enoxaparin 40 MG/0.4 ML SYRINGE SQ SCH (06:05)
[2017-04-10] MEDS: Divalproex Sodium 125 MG CAPSULE PO SCH (07:36)
--- NOTE | 2017-04-10 14:30 | Internal Med History&Physical ---
Date of Encounter: 04/10/17 Time of Encounter: 14:00 Assessment and Plan (1) Intractable vomiting Current visit: Yes Status: Acute He has been given IV fluids and anti-emetics. Further workup will be done as needed. Qualifiers: Vomiting type: unspecified Nausea presence: with nausea Qualified Code(s) : R11.2 - Nausea with vomiting, unspecified (2) Weight loss Current visit: No Status: Acute Abdominal/pelvic CT was unremarkable in emergency room. Will order CT of chest. TSH was normal at 0.558 on 02/01/2017. (3) Lung nodules Current visit: No Status: Acute We will order repeat chest CT to follow-up on January 2017 CT scan showing lung nodules Internal Medicine - H&P: HPI Chief complaint: Vomiting and headaches Admitted From: Home Plans for Post Hospital Care: Home History of present illness: Mr. Ng is a 56 year old male who came to emergency room stating he had onset of vomiting the evening of April 08. He vomited twice that evening and multiple times the following day. He developed some epigastric area discomfort. He denies melena, hematochezia, or hematemesis. He came to emergency room and was evaluated and admitted to [facility] floor for ongoing care needs. He reports headaches have been present with increasing frequency over the past 2 months. He describes them as a "pressure sensation" in his head. He has not any focal weakness of an arm or leg. He thinks his vision may have decreased. Past Med Surg Social Fam HX - Past Medical History Medical history: asthma, GERD, syncope, other Psychiatric history: anxiety, depression - Past Surgical History Surgical History: other - Social History Smoking Status: Current every day smoker Smokeless Tobacco Status: No Alcohol use: none Drug use: none Internal Medicine - H&P: Meds Divalproex Sodium [Depakote] 125 mg PO DAILY 10/30/16 [History] Quetiapine Fumarate [Seroquel] 400 mg PO QPM 10/30/16 [History] Nitroglycerin [Nitrostat] 0.4 mg SL Q5M PRN #1 vial 02/02/17 [Rx] clonazePAM [Clonazepam] 1 mg PO TID 04/09/17 [History] Allergies No Known Allergies Allergy (Verified 01/31/17 13:56) All Systems PM: A 10-system review of systems was performed and is negative for pertinent findings except as documented above in the HPI. Review of systems: Review of systems from his January 2017 [facility] hospitalization were reviewed and revised as below. Gen.: He states his weight has decreased approximately 80 pounds in the past 5 years and 25 pounds in the last year, unintentionally. His weight is decreased from 67.387 kg on 02/01/2017 to 59.103 kg at present. Cardiovascular: He denies hypertension HI heart failure DVT or pulmonary embolus. He does get chest pain on exertion and states the discomfort is predictable and seems to be increasing in severity and coming on quicker with exertion over the past 2 years. He has not sought medical attention for this. He has not been seen by his PCP since discharge January 2017 as he was directed and states he has not been seen by PCP in over 1-1/2 years Respiratory: He has smoked since age 12 up to 3 packs per day. He has not had PFTs and does not wear home oxygen. GI: He denies disorders of his liver gallbladder or exocrine pancreas : He denies hematuria dysuria or kidney stones Neurologic: He denies large distribution strokes or seizures Endocrine: He denies diabetes thyroid disease or hyperlipidemia. His TSH was slightly suppressed at 0.348 on 02/28/2016. Hematology/oncology: He denies blood disorders cancers or anemia Psychiatric: He has anxiety and follows at mental health clinic. He denies depression or other mental health diagnoses Musk skeletal: He has DJD. He reports he has had 3 back surgeries for generative disc disease but denies other bone joint or muscle disorders. - Constitutional Vitals: Temp Pulse Resp BP Pulse Ox 98.2 F 100 18 111/75 98 04/10/17 10:32 04/10/17 10:32 04/10/17 10:32 04/10/17 10:32 04/10/17 10:32 Exam: Gen.: He is a well-developed well-nourished male who appears in no severe distress at present time HEENT: Head is atraumatic and normocephalic. Eyes: EOMI. There is no scleral icterus. Mouth: Mucosa is moist. Neck: Supple and nontender. There is no thyromegaly or adenopathy noted. Heart: Regular without murmurs gallops or ectopics Lungs: No wheezes or crackles are heard. Abdomen: Soft and nontender. Bowel sounds are diminished. There is minimal discomfort in the epigastric area to palpation. Extremities: There is no cyanosis edema or clubbing noted. Dorsalis pedis and posterior tibial pulses are 1-2 over 2 bilaterally. Neurologic: Mental status: He is talkative and seems to be a reliable historian. Cranial nerves: Smile is symmetric. Forehead wrinkles bilaterally. Tongue protrudes midline. EOMI. Motor: There is no pronator drift. Cerebellar: Finger to nose is intact bilaterally. Skin: Warm and dry Internal Med - H&P Results - Labs CBC & Chem 7: 04/09/17 10:25 04/09/17 10:25
[2017-04-11] MEDS: 0.9 % Sodium Chloride 1,000 ML IVC SCH ×3 (01:27→09:47)
[2017-04-11] MEDS: *HR* Enoxaparin 40 MG/0.4 ML SYRINGE SQ SCH (06:14)
[2017-04-11] MEDS: Famotidine 20 MG/2 ML VIAL IVP SCH (06:14)
[2017-04-11 09:04] VITALS: BP 127/81
[2017-04-11] MEDS: Divalproex Sodium 125 MG CAPSULE PO SCH (09:04)
--- NOTE | 2017-04-11 09:25 | Discharge Summary ---
Date of Encounter: 04/11/17 Time of Encounter: 09:15 - Discharge Diagnosis (1) Intractable vomiting Priority: Primary Status: Resolved Qualifiers: Vomiting type: unspecified Nausea presence: with nausea Qualified Code(s) : R11.2 - Nausea with vomiting, unspecified (2) Weight loss Priority: Secondary Status: Acute (3) Lung nodules Priority: Secondary Status: Acute - Discharge Medications Home Medications: Divalproex Sodium [Depakote] 125 mg PO DAILY 10/30/16 [History] Quetiapine Fumarate [Seroquel] 400 mg PO QPM 10/30/16 [History] Nitroglycerin [Nitrostat] 0.4 mg SL Q5M PRN #1 vial 02/02/17 [Rx] clonazePAM [Clonazepam] 1 mg PO TID 04/09/17 [History] Allergies/Adverse Reactions: Allergies No Known Allergies Allergy (Verified 01/31/17 13:56) Procedures/tests Complete & Pending: Procedures Performed prior 72 hours Category Date Time Status CT chest wo con [CT] Routine Cat Scan 04/10/17 14:[address] head/brain wo con [CT] Routine Cat Scan 04/10/17 14:25 Completed Date of admission: 04/09/17 16:58 Primary care physician: PCP NO - Patient Status Disposition: Home, Self-Care Condition: Good Functional capacity at discharge: independent ambulation Overall status at discharge: patient is progressing back to baseline - Discharge Instructions Follow Up With: NO,PCP [Primary Care Provider] - 1 week - Diet and Activity Activity: resume usual activities as tolerated Diet: advance to your usual diet Hospital course: Mr. Ng is a 56 year old male who came to emergency room stating he had onset of vomiting the evening of April 08. He vomited twice that evening and multiple times the following day. He developed some epigastric area discomfort. He denies melena, hematochezia, or hematemesis. He came to emergency room and was evaluated and admitted to [facility] for ongoing care needs. Initial orders were written by the emergency room physician. I saw him on April 10 and performed the history and physical. He was given IV fluids and antiemetics when necessary. He had no vomiting the last 24 hours of hospitalization. He tolerated adequate amount of food and fluid intake. He felt stable for discharge home April 11. Chest CT was done to follow-up on January CT showing pulmonary nodules. There was significant improvement seen with resolution of most nodules that were present 2 months ago. I encouraged him to discontinue smoking. He will be discharged home and follow with a PCP at [facility] within 1 week. - Time Spent with Patient Total time spent providing and/or coordinating discharge services: - Constitutional Vitals: Temp Pulse Resp BP Pulse Ox 99.0 F 112 15 127/81 98 04/11/17 07:02 04/11/17 09:01 04/11/17 07:02 04/11/17 09:01 04/11/17 09:01
== END 2017-04-11 10:11 | disposition home or self-care (01) ==
LOC: EMEROOPIK 09:56 → INPPIK 09:56
PROVIDERS: ADMIT Internal Medicine; ATTEND Internal Medicine